=== PATIENT | female | born 1995 | race Two or more races ===

== ENCOUNTER 2016-09-06 12:41 | Emergency (ER) | payer SELFPAY ==
[2016-09-06 12:47] VITALS: BP 143/88
--- NOTE | 2016-09-06 13:26 | ED ---
Respiratory - HPI Summary HPI Summary: PT presents to the ED through amb triage. Pt with cough productive of brown sputum progressive x 4-5 days. Pt states feels fatigue with tactile temp. Pt reports sinus pressure, sore throat. No rash. No cp. No abd pain, n/v. No NESS. PT with h/o PNA approx 3 months ago and states feels similar. No tobacco history. no h/o lung dx Pt's medications reviewed at this visit. - History of Current Complaint Chief Complaint: UCRespiratory Stated Complaint: TROUBLE BREATHING Time Seen by Provider: 09/06/16 13:04 Hx Obtained From: Patient Onset/Duration: Gradual Onset Timing: Constant Initial Severity: Mild Current Severity: Moderate Character: Cough (Productive) - green Sputum Amount: Small Sputum Color: Green Aggravating Factor(s): Nothing Alleviating Factor(s): Nothing Associated Signs and Symptoms: Fever - tactile - Allergy/Home Medications Allergies/Adverse Reactions: Allergies Allergy/AdvReac Type Severity Reaction Status Date / Time No Known Allergies Allergy Verified 09/06/16 12:47 PMH/Surg Hx/FS Hx/Imm Hx Previously Healthy: Yes - Surgical History Surgery Procedure, Year, and Place: none Infectious Disease History: No Infectious Disease History: Denies: Traveled Outside the [place] in Last 30 Days - Family History Known Family History: Positive: None - Social History Occupation: Employed Full-time Lives: With Family Alcohol Use: None Substance Use Type: Reports: None Smoking Status (MU): Light Every Day Tobacco Smoker Type: Cigarettes Amount Used/How Often: 3 per day Review of Systems Positive: Fever Eyes: Negative Positive: Nasal Discharge Cardiovascular: Negative Respiratory: Negative Positive: Cough Gastrointestinal: Negative Genitourinary: Negative Musculoskeletal: Negative Skin: Negative Neurological: Negative Psychological: Normal All Other Systems Reviewed And Are Negative: Yes Physical Exam Triage Information Reviewed: Yes Vital Signs On Initial Exam: Initial Vitals Temp Pulse Resp BP Pulse Ox 97.1 F 102 20 143/88 98 09/06/16 12:44 09/06/16 12:44 09/06/16 12:44 09/06/16 12:44 09/06/16 12:44 Vital Signs Reviewed: Yes Appearance: Positive: Well-Appearing, No Pain Distress Skin: Positive: Warm, Skin Color Reflects Adequate Perfusion, Dry Head/Face: Positive: Normal Head/Face Inspection Eyes: Positive: Normal, EOMI, MIMI ENT: Positive: Pharynx normal, TMs normal - right TM mild erythema. left TM turbinates inflammed + PND No erythema, no exudate Neck: Positive: Supple, Nontender Respiratory/Lung Sounds: Positive: Rhonchi, Wheezes Cardiovascular: Positive: Normal, RRR Abdomen Description: Positive: Nontender, No Organomegaly, Soft Bowel Sounds: Positive: Present Musculoskeletal: Positive: Normal, Strength/ROM Intact Neurological: Positive: Normal, Sensory/Motor Intact, Alert, Oriented to Person Place, Time Psychiatric: Positive: Normal AVPU Assessment: Alert Diagnostics - Vital Signs Vital Signs Temp Pulse Resp BP Pulse Ox 09/06/16 12:44 97.1 F 102 20 143/88 98 - Laboratory Lab Statement: Any lab studies that have been ordered have been reviewed, and results considered in the medical decision making process. - Radiology No standard instances Radiology Interpretation Completed By: Radiologist - no acute changes Disposition - Course Assessment/Plan: pt with cough with brown sputum, fatigue, congestion and tatile fever. Pt's partner 8 months . Pt with rhonci right base. Will check CXR. abx. mdi. flonase. hydrate. motrin/apap - Diagnoses Provider Diagnoses: Bronchitis Discharge - Discharge Plan Condition: Stable Disposition: HOME Prescriptions: Albuterol HFA INHALER* [Ventolin HFA Inhaler*] 2 puff INH Q4H PRN #1 mdi PRN Reason: wheeze Azithromycin TAB* [Zithromax TAB (Z-WALTER) 250 mg #6 tabs] 250 mg PO DAILY #6 tab Fluticasone NASAL * [Flonase *] 2 spray BOTH NARES DAILY #1 spray Patient Education Materials: Acute Bronchitis (ED) Forms: *Work Release Referrals: No Primary Care Phys,NOPCP [Primary Care Provider] - Additional Instructions: - Stay well hydrated. Drink plenty of non-alcoholic, non-caffinated beverages. - Take antibiotics as prescribed until gone. Use puffer every 4hours for wheeze - use nasal spray as instructed - After you have been on antibiotics for 2 days - change your toothbrush and your pillowcase. These infections are spread by secretions - do NOT share eating or drinking utensils - clean items you share with other people such as cell phones, computer mouse, TV remote, computer tablets, etc - Alternate ibuprofen (Advil, Motrin) 600mg and Tylenol every 3 hours for pain or fever. Take with food. Do NOT take for more than 4-5 days. - Contact your doctor or return with questions or concern
--- NOTE | 2016-09-06 13:59 | RAD ---
INDICATION: Cough, fever, rhonchi at the RIGHT lung base. COMPARISON: No relevant prior exams available on the [facility] PACS for comparison. TECHNIQUE: Dual energy PA and routine lateral views of the chest were obtained. REPORT: Clear lungs and pleural spaces. Negative for pneumothorax. The heart, pulmonary vasculature, and mediastinal contours are unremarkable. Unremarkable osseous structures and soft tissue contours. IMPRESSION: No evidence for acute intrathoracic disease.
== END 2016-09-06 14:15 | disposition home or self-care (01) ==
LOC: UCEAST 12:41
DX: J40 Bronchitis, not specified as acute or chronic (principal)
CPT/HCPCS: 71020; 99212; G0463

== ENCOUNTER → 2017-01-15 21:36 | Emergency (ER) | payer SELFPAY ==
[2017-01-15 21:39] VITALS: BP 129/74
== END | disposition left against medical advice (07) ==
LOC: ED 21:36
DX: R11.10 Vomiting, unspecified (principal); Z53.21 Procedure and treatment not carried out due to patient leaving prior to being seen by health care provider

== ENCOUNTER 2017-01-16 10:06 | Emergency (ER) | payer OTHER ==
[2017-01-16 10:16] VITALS: BP 117/80
--- NOTE | 2017-01-17 18:03 | UC ---
Progress - Progress Note Progress Note: Call patient to assure sx are resolving ---if not encourage follow up
--- NOTE | 2017-01-18 10:06 | UC ---
Progress - Progress Note Progress Note: Call patient to assure sx are resolving ---if not encourage follow up 01/18/17 + UTI with E. Coli Pt given Rx Clinda Recommend change to Macrobid Rx called to pharmacy Please update pt 10:05am Lázaro
--- NOTE | 2017-01-30 17:29 | UC ---
Aarti Herrera Alfonso, scribed for Rosie Goff DO on 01/16/17 at 1103 . General HPI - HPI Summary HPI Summary: This patient is a 22 year old F presenting to [facility] with a chief complaint of productive coughing with brown/yellow phlegm since 1 week ago. The patient rates the pain 9/10 in severity. Symptoms aggravated and alleviated by nothing. Patient reports fever, nausea, vomiting (6 times yesterday and once this morning ), sharp headache, insomnia, abdominal pain, chest congestion, dysuria, and urinary frequency. Patient denies sore throat, ear ache, diarrhea, rash, myalgia , dizziness, and faintness. She recently completed a course of abx. - History of Current Complaint Chief Complaint: UCGeneralIllness Stated Complaint: COUGH,FEVER,VOMITTING Time Seen by Provider: 01/16/17 10:40 Hx Obtained From: Patient Hx Last Menstrual Period: 01/13/17 Onset/Duration: Gradual Onset, Lasting Weeks - 1, Still Present Timing: Constant Current Severity: Severe Pain Intensity: 9 - /10 Aggravating: nothing Alleviating: nothing Associated Signs & Symptoms: Positive: Other - fever, nausea, vomiting (6 times yesterday and once this morning), sharp headache, insomnia, abdominal pain, chest congestion, dysuria, and urinary frequency. Patient denies sore throat, ear ache, diarrhea, rash, myalgia, dizziness, and faintness. - Allergy/Home Medications Allergies/Adverse Reactions: Allergies Allergy/AdvReac Type Severity Reaction Status Date / Time No Known Allergies Allergy Verified 01/16/17 10:16 Home Medications: Home Medications Clindamycin Cap(NF) [Clindamycin Cap 300 mg Cap(NF)] 300 mg PO TID 01/16/17 [ History Confirmed 01/16/17] PMH/Surg Hx/FS Hx/Imm Hx Previously Healthy: Yes - Surgical History Surgical History: None Surgery Procedure, Year, and Place: none - Family History Known Family History: Positive: Hypertension, Diabetes - Social History Alcohol Use: Rare Substance Use Type: None Smoking Status (MU): Light Every Day Tobacco Smoker Type: Cigarettes Amount Used/How Often: 3 per day Cessation Counseling: Patient Advised to Stop - Immunization History Most Recent Influenza Vaccination: 02/2016 Review of Systems Constitutional: Fever Skin: Other - Negative rash ENT: Other - Negative sore throat, ear ache Respiratory: Cough, Other - Chest congestion Gastrointestinal: Abdominal Pain, Vomiting, Nausea, Other - Negative diarrhea Genitourinary: Dysuria, Frequency Musculoskeletal: Other: - Negative myalgia Neurological: Headache, Other - insomnia; negative dizziness, and faintness All Other Systems Reviewed And Are Negative: Yes Physical Exam Triage Information Reviewed: Yes Appearance: Well-Appearing, No Pain Distress, Well-Nourished Vital Signs: Initial Vital Signs Temp 97.4 F 01/16/17 10:11 Pulse 97 01/16/17 10:11 Resp 18 01/16/17 10:11 BP 117/80 01/16/17 10:11 Pulse Ox 99 01/16/17 10:11 Vital Signs Reviewed: Yes Eyes: Positive: Conjunctiva Clear. Negative: Discharge ENT: Positive: Hearing grossly normal. Negative: Tonsillar swelling, Tonsillar exudate, Trismus, Muffled voice, Hoarse voice Neck exam: Normal Neck: Positive: Supple Respiratory: Positive: Lungs clear, Normal breath sounds, No respiratory distress, No accessory muscle use Cardiovascular: Positive: RRR, No Murmur Abdomen Description: Positive: Soft, Other: - Positive psoas and automatic operator sign. Exquisite RLQ and umbilical tenderness.. Negative: Distended, Guarding Bowel Sounds: Positive: Present Musculoskeletal Exam: Normal Neurological: Positive: Alert, Muscle Tone Normal Psychological Exam: Normal Psychological: Positive: Normal Response To Family Skin Exam: Normal Skin: Positive: Other - Warm, Dry, Normal color Course/Dx - Differential Dx - Multi-Symptom Provider Diagnoses: uti, abd pain - r/o appy Discharge - Discharge Plan Condition: Stable Disposition: HOME Prescriptions: Nitrofurantoin Monohyd Macro [Macrobid] 100 mg PO BID #14 cap Patient Education Materials: Urinary Tract Infection in Women (ED), Acute Abdominal Pain (ED) Referrals: No Primary Care Phys,NOPCP [Primary Care Provider] - Additional Instructions: YOUR HISTORY AND PHYSICAL EXAM IS SUSPICIOUS FOR APPENDICITIS WELL UTI/ KIDNEY INFECTION. GIVEN THAT APPENDICITIS IS A LIFE THREATENING CONDITION, IT IS VERY IMPORTANT THAT YOU GO TO THE EMERGENCY DEPARTMENT IMMEDIATELY FOR COMPLETE EVALUATION AND TREATMENT. The documentation as recorded by the Aarti soto Alfonso accurately reflects the service I personally performed and the decisions made by , Rosie Goff DO.
== END 2017-01-16 11:42 | disposition home or self-care (01) ==
LOC: UCEAST 10:06
DX: N39.0 Urinary tract infection, site not specified (principal); B96.20 Unspecified Escherichia coli [E. coli] as the cause of diseases classified elsewhere; R10.31 Right lower quadrant pain; R10.33 Periumbilical pain; R11.2 Nausea with vomiting, unspecified; R51 Headache; R09.89 Other specified symptoms and signs involving the circulatory and respiratory systems; F17.210 Nicotine dependence, cigarettes, uncomplicated
CPT/HCPCS: 81003; 81025; 87077; 87086; 87186; 99212; G0463

== ENCOUNTER 2017-01-16 12:20 | Emergency (ER) | payer OTHER ==
[2017-01-16] MEDS ORDERED: Ondansetron INJ* 2 MG/ML VIAL IV ONE (12:58)
[2017-01-16] MEDS ORDERED: NS 0.9% 1000 ML* 1,000 ML IV ONE (12:58)
[2017-01-16] MEDS ORDERED: Ketorolac INJ* 15 MG/ML 1 ML VIAL IV ONE (12:58)
--- NOTE | 2017-01-16 13:45 | RAD ---
Indication: Cough. Single frontal view of the chest performed at 1330 hours was reviewed. Comparison is made with previous exam dated September 06, 2016. No mediastinal shift is noted. Heart is of normal size and configuration. Lung yi appear clear. IMPRESSION: NO ACTIVE CARDIOPULMONARY DISEASE IS NOTED.
[2017-01-16 14:02] LABS: Hematocrit 39 % (35-47); Hemoglobin 13.7 g/dl (12.0-16.0); Mean Corpuscular HGB Conc 35 g/dl (31-36); Mean Corpuscular Hemoglobin 31 pg (27-31); Mean Corpuscular Volume 89 fL (80-97); Mean Platelet Volume 8 um3 (7.4-10.4); Red Blood Count 4.39 10^6/ul (4.0-5.4); Red Cell Distribution Width 13 % (10.5-15); White Blood Count 10.4 10^3/ul (3.5-10.8)
[2017-01-16 14:18] LABS: ALT 18 U/L (7-52); AST 14 U/L (13-39); Albumin 4.3 g/dL (3.2-5.2); Alkaline Phosphatase 67 U/L (34-104); Amylase 33 U/L (29-103); Anion Gap 7 mmol/L (2-11); BUN/Creatinine Ratio 13.3 (8-20); Blood Urea Nitrogen 10 mg/dL (6-24); C Reactive Protein 63.98 mg/L (< 5.00); CO2 Carbon Dioxide 25 mmol/L (22-32); Calcium 9.3 mg/dL (8.6-10.3); Chloride 104 mmol/L (101-111); Creatine Kinase 108 U/L (10-223); EGFR African American 125.4 (>60); EGFR Non-African American 97.5 (>60); Globulin 3.1 g/dL (2-4); Glucose 96 mg/dL (70-100); Lipase < 10 U/L (11.0-82.0); Magnesium 2.2 mg/dL (1.9-2.7); Potassium 3.5 mmol/L (3.5-5.0); Sodium 136 mmol/L (133-145); Total Protein 7.4 g/dL (6.4-8.9)
[2017-01-16] MEDS ORDERED: Iohexol 300* (CONTRAST) 10 ML SDV IV ONE (15:49)
--- NOTE | 2017-01-16 16:07 | RAD ---
CLINICAL HISTORY: Abdominal pain COMPARISON: None TECHNIQUE: Contrast enhanced CT examination of the abdomen and pelvis from the lung bases through the initial tuberosities. The patient received 130 mL Omnipaque 300 intravenously prior to imaging.The patient received oral contrast as well prior to imaging. FINDINGS: VISUALIZED LUNG BASES: The visualized lung bases are grossly clear. There is no pleural effusion. ABDOMEN AND PELVIS: The liver, spleen, pancreas and adrenal glands are grossly normal in appearance. The gallbladder is normal. The kidneys are normal in appearance without focal mass, calcification or signs of hydronephrosis. The oral contrast has progressed as far as the rectum. The small and large bowel are not distended. The patient's normal appendix is identified in the right lower quadrant measuring up to 7 mm in diameter with contrast in the lumen (axial image 63 and coronal image 44). Air-fluid levels in the transverse colon and to a lesser extent the rectum are noted in the otherwise normal-appearing colon. There is no retroperitoneal lymphadenopathy. Mesenteric lymph nodes are top normal in diameter measuring up to 7 mm in short access but none are pathologically enlarged. An ill-defined fluid density structure measuring up to 3.2 cm in greatest axial dimension in the right adnexa is most consistent with a dominant ovarian follicle in a woman of this age. The abdominal aorta and iliac arteries are normal in course and diameter. There are no sinister bone lesions. IMPRESSION: 1. Air-fluid levels seen in the transverse colon and rectum could be seen in the setting of diarrheal illness. 2. A fluid density right adnexal structure is most consistent with a dominant ovarian follicle in a woman of this age. 3. The normal appendix is visualized.
[2017-01-16 16:14] LABS: Urine Bacteria 1+ (Absent); Urine Bilirubin Negative (Negative); Urine Glucose Negative (Negative); Urine Nitrite Negative (Negative)
[2017-01-16] MEDS ORDERED: cefTRIAXone(*) 1 GM in NS 0.9% 50 ML* 50 ML IVPB ONE (17:28)
--- NOTE | 2017-01-16 18:25 | RAD ---
INDICATION: Abdominal pain. Evaluate gallbladder. Normal CT. COMPARISON: CT same date TECHNIQUE: Longitudinal and transverse scans of the right upper quadrant were obtained. Doppler interrogation of the hepatic and portal venous system was performed. FINDINGS: Liver: There is mild hepatomegaly with hepatic steatosis. There are no masses . The liver measures 18.0 cm in cephalocaudal dimension. Vessels: There is normal hepatic and portal venous flow. Bile ducts: There is no evidence of intrahepatic or extrahepatic ductal dilatation. The common duct measures 0.4 cm. Gallbladder: The sonographic appearance of the gallbladder is normal. There is no evidence of cholelithiasis, thickening of the gallbladder wall, or pericholecystic fluid. Pancreas: The visualized pancreas appears normal Right kidney: The right kidney is normal in size and echogenicity. There are no masses or calculi. There is no evidence of hydronephrosis. The right kidney measures 11.9 x 6.1 x 5.0 cm. IVC and aorta: The aorta and superior vena cava appear normal. Fluid: There is no ascites. Other: None. IMPRESSION: NORMAL STUDY.
--- NOTE | 2017-01-16 18:39 | RAD ---
INDICATION: Right-sided abdominal and pelvic pain. COMPARISON: CT January 16, 2017 TECHNIQUE: Longitudinal and transverse transvaginal scans of the pelvis were obtained. FINDINGS: Uterus: The uterus is normal in size. There are no focal masses. The uterus measures 7.2 x 3.8 x 4.9 cm. Endometrial thickness: The endometrial thickness is measured at 0.4 cm. . Free fluid: There is a small amount of free fluid in the cul-de-sac and surrounding the right ovary. Ovaries: The ovaries are normal in size. The right ovary measures 4.1 x 2.0 x 3.4 cm. The left ovary measures 3.4 x 2.2 x 2.8 cm. There is an involuting right ovarian cyst measuring 3.1 x 0.8 x 2.4 cm. Doppler interrogation demonstrates flow to each ovary. Other: None IMPRESSION: Involuting right ovarian cyst. Small amount of free fluid.
[2017-01-16 20:11] VITALS: BP 131/71
--- NOTE | 2017-01-16 22:24 | ED ---
Francesca Herrera Nilda, scribed for Belgica Prabhakar MD on 01/16/17 at 1341 . Abdominal Pain/Female - HPI Summary HPI Summary: This patient is a 22 year old F presenting from [facility] to [facility] with a chief complaint of constant severe RLQ pain since yesterday. For the past week pt had a cough. Yesterday, pt reports N/V, fever (101), and sharp RLQ pain. This morning pt woke up with a fever and RLQ pain. Pt vomitedd 6 times yesterday, 2 times today, bilious vomiting. Pt also c/o dysuria. The patient rates the abd pain 8/10 in severity. Symptoms aggravated by palpation and alleviated by nothing. Pt states she is not on any medications but she just finished a course of 10 days of Clindamycin. NKDA. No PMHx of kidney stones. No PSHx. 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 No diarrhea. ROS: headache. 11:12 UA from Urgent Care: specific gravity 1.025 1+ protein Trace ketone 2+ blood + nitrite 1+ bilirubin - History of Current Complaint Chief Complaint: EDAbdPain Stated Complaint: POSS KIDNEY INFECTION-SENT FROM [facility] Time Seen by Provider: 01/16/17 12:58 Hx Obtained From: Patient, Medical Records - Dr. Shell Coombs Last Menstrual Period: 01/13/17 ?: No Onset/Duration: Sudden Onset, Lasting Days, Still Present Timing: Constant Severity Initially: Moderate Severity Currently: Severe Pain Intensity: 8 Pain Scale Used: 0-10 Numeric Location: Discrete At: RLQ Radiates: Yes Radiates to: Other - RUQ Character: Sharp Aggravating Factor(s): Other: - palpation Alleviating Factor(s): Nothing Associated Signs and Symptoms: Positive: Fever, Cough, Urinary Symptoms, Nausea , Vomiting, Other: - cough, RLQ pain that radiates to RUQ, fever, N/V Allergies/Adverse Reactions: Allergies Allergy/AdvReac Type Severity Reaction Status Date / Time No Known Allergies Allergy Verified 01/16/17 10:16 PMH/Surg Hx/FS Hx/Imm Hx Previously Healthy: Yes History: Denies: Hx Kidney Stones Sensory History: Denies: Hx Legally Blind EENT History: Denies: Hx Deafness - Surgical History Surgery Procedure, Year, and Place: none Infectious Disease History: No Infectious Disease History: Denies: Traveled Outside the [place] in Last 30 Days - Family History Known Family History: Positive: Hypertension, Diabetes, Other - mom- appendicitis - Social History Occupation: Employed Part-time - works at [employer] Lives: With Family Alcohol Use: Rare Substance Use Type: Reports: None Smoking Status (MU): Never Smoked Tobacco Type: Cigarettes Amount Used/How Often: 3 per day Review of Systems Positive: Fever Cardiovascular: Negative Positive: Cough Positive: Abdominal Pain - RLQ radiating to RUQ, Vomiting, Nausea Positive: dysuria Skin: Negative Positive: Headache Psychological: Normal All Other Systems Reviewed And Are Negative: Yes Physical Exam Triage Information Reviewed: Yes Vital Signs On Initial Exam: Initial Vitals Temp Pulse Resp BP Pulse Ox 97.2 F 106 18 134/80 98 01/16/17 12:26 01/16/17 12:26 01/16/17 12:26 01/16/17 12:26 01/16/17 12:26 Vital Signs Reviewed: Yes Appearance: Positive: Well-Appearing, Well-Nourished, Pain Distress Skin: Positive: Warm, Skin Color Reflects Adequate Perfusion, Other - no rash Head/Face: Positive: Normal Head/Face Inspection Eyes: Positive: EOMI, MIMI, Conjunctiva Clear ENT: Positive: Normal ENT inspection, Pharynx normal Neck: Positive: Supple, Nontender Respiratory/Lung Sounds: Positive: Clear to Auscultation, Breath Sounds Present , Other - no respiratory distress. Cardiovascular: Positive: RRR, Other - normal pulses, brisk capillary refill, S1 , S2. Negative: Murmur Abdomen Description: Positive: No Organomegaly, Soft, CVA Tenderness (R), Guarding - @ RLQ, McBurney's Point Tenderness, Other: - RLQ pain radiates to RUQ. Negative: Distended, Hernia @, Hepatomegaly, Peritoneal Signs, Pulsatile Mass, Splenomegaly Bowel Sounds: Positive: Present Musculoskeletal: Positive: Strength/ROM Intact. Negative: Alvaro Sign Left, Alvaro Sign Right, Edema Left, Edema Right Neurological: Positive: Sensory/Motor Intact, Alert, Oriented to Person Place, Time, Facial Symmetry, Speech Normal, Other - muscle tone normal Psychiatric: Positive: Normal - [place] Coma Scale Glascow Coma Scale Comments: 15 Diagnostics - Vital Signs Vital Signs Temp Pulse Resp BP Pulse Ox 01/16/17 12:26 97.2 F 106 18 134/80 98 - Laboratory Lab Results: Lab Results 01/16/17 01/16/17 01/16/17 Range/Units 13:40 13:40 13:40 WBC 10.4 (3.5-10.8) 10^3/ul RBC 4.39 (4.0-5.4) 10^6/ul Hgb 13.7 (12.0-16.0) g/dl Hct 39 (35-47) % MCV 89 (80-97) fL MCH 31 (27-31) pg MCHC 35 (31-36) g/dl RDW 13 (10.5-15) % Plt Count 223 (150-450) 10^3/ul MPV 8 (7.4-10.4) um3 Neut % (Auto) 78.2 (38-83) % Lymph % (Auto) 14.8 L (25-47) % [place] % (Auto) 6.6 (1-9) % Eos % (Auto) 0.1 (0-6) % Baso % (Auto) 0.3 (0-2) % Absolute Neuts (auto) 8.1 H (1.5-7.7) 10^3/ul Absolute Lymphs (auto) 1.5 (1.0-4.8) 10^3/ul Absolute Monos (auto) 0.7 (0-0.8) 10^3/ul Absolute Eos (auto) 0 (0-0.6) 10^3/ul Absolute Basos (auto) 0 (0-0.2) 10^3/ul Absolute Nucleated RBC 0 10^3/ul Nucleated RBC % 0 INR (Anticoag Therapy) 1.21 H (0.89-1.11) Sodium 136 (133-145) mmol/L Potassium 3.5 (3.5-5.0) mmol/L Chloride 104 (101-111) mmol/L Carbon Dioxide 25 (22-32) mmol/L Anion Gap 7 (2-11) mmol/L BUN 10 (6-24) mg/dL Creatinine 0.75 (0.51-0.95) mg/dL Est GFR ( Amer) 125.4 (>60) Est GFR (Non-Af Amer) 97.5 (>60) BUN/Creatinine Ratio 13.3 (8-20) Glucose 96 (70-100) mg/dL Lactic Acid (0.5-2.0) mmol/L Calcium 9.3 (8.6-10.3) mg/dL Magnesium 2.2 (1.9-2.7) mg/dL Total Bilirubin 0.70 (0.2-1.0) mg/dL AST 14 (13-39) U/L ALT 18 (7-52) U/L Alkaline Phosphatase 67 (34-104) U/L Total Creatine Kinase 108 (10-223) U/L C-Reactive Protein 63.98 H (< 5.00) mg/L Total Protein 7.4 (6.4-8.9) g/dL Albumin 4.3 (3.2-5.2) g/dL Globulin 3.1 (2-4) g/dL Albumin/Globulin Ratio 1.4 (1-3) Amylase 33 (29-103) U/L Lipase < 10 L (11.0-82.0) U/L Beta HCG, Quant < 0.60 mIU/mL Urine Color Urine Appearance Urine pH (5-9) Ur Specific Row[place] (1.010-1.030) Urine Protein (Negative) Urine Ketones (Negative) Urine Blood (Negative) Urine Nitrate (Negative) Urine Bilirubin (Negative) Urine Urobilinogen (Negative) Ur Leukocyte Esterase (Negative) Urine WBC (Auto) (Absent) Urine RBC (Auto) (Absent) Ur Squamous Epith Cells (Absent) Urine Bacteria (Absent) Urine Glucose (Negative) 01/16/17 01/16/17 01/16/17 Range/Units 13:40 15:15 18:53 WBC (3.5-10.8) 10^3/ul RBC (4.0-5.4) 10^6/ul Hgb (12.0-16.0) g/dl Hct (35-47) % MCV (80-97) fL MCH (27-31) pg MCHC (31-36) g/dl RDW (10.5-15) % Plt Count (150-450) 10^3/ul MPV (7.4-10.4) um3 Neut % (Auto) (38-83) % Lymph % (Auto) (25-47) % [place] % (Auto) (1-9) % Eos % (Auto) (0-6) % Baso % (Auto) (0-2) % Absolute Neuts (auto) (1.5-7.7) 10^3/ul Absolute Lymphs (auto) (1.0-4.8) 10^3/ul Absolute Monos (auto) (0-0.8) 10^3/ul Absolute Eos (auto) (0-0.6) 10^3/ul Absolute Basos (auto) (0-0.2) 10^3/ul Absolute Nucleated RBC 10^3/ul Nucleated RBC % INR (Anticoag Therapy) (0.89-1.11) Sodium (133-145) mmol/L Potassium (3.5-5.0) mmol/L Chloride (101-111) mmol/L Carbon Dioxide (22-32) mmol/L Anion Gap (2-11) mmol/L BUN (6-24) mg/dL Creatinine (0.51-0.95) mg/dL Est GFR ( Amer) (>60) Est GFR (Non-Af Amer) (>60) BUN/Creatinine Ratio (8-20) Glucose (70-100) mg/dL Lactic Acid 0.8 0.6 (0.5-2.0) mmol/L Calcium (8.6-10.3) mg/dL Magnesium (1.9-2.7) mg/dL Total Bilirubin (0.2-1.0) mg/dL AST (13-39) U/L ALT (7-52) U/L Alkaline Phosphatase (34-104) U/L Total Creatine Kinase (10-223) U/L C-Reactive Protein (< 5.00) mg/L Total Protein (6.4-8.9) g/dL Albumin (3.2-5.2) g/dL Globulin (2-4) g/dL Albumin/Globulin Ratio (1-3) Amylase (29-103) U/L Lipase (11.0-82.0) U/L Beta HCG, Quant mIU/mL Urine Color Yellow Urine Appearance Cloudy Urine pH 6.0 (5-9) Ur Specific Rowdy 1.009 L (1.010-1.030) Urine Protein Negative (Negative) Urine Ketones Negative (Negative) Urine Blood 3+ H (Negative) Urine Nitrate Negative (Negative) Urine Bilirubin Negative (Negative) Urine Urobilinogen Negative (Negative) Ur Leukocyte Esterase Trace H (Negative) Urine WBC (Auto) Trace(0-5/hpf) (Absent) Urine RBC (Auto) 1+(3-5/hpf) H (Absent) Ur Squamous Epith Cells Present H (Absent) Urine Bacteria 1+ H (Absent) Urine Glucose Negative (Negative) Result Diagrams: 01/16/17 13:40 01/16/17 13:40 Lab Statement: Any lab studies that have been ordered have been reviewed, and results considered in the medical decision making process. - Radiology CXR Radiology Interpretation Completed By: Radiologist - CXR reveals no active cardiopulmonary disease noted. ED physician has reviewed this radiology report and agrees. - CT Abd/Pel CT Interpretation Completed By: Radiologist - CT Abd/Pel, per radiologist, reveals (1) air fluid levels seen in the transverse colon and rectum could be seen in the setting of diarrheal illness. (2) A fluid density right adnexal structure is most consistent with a dominant ovarian follicle in a woman of this age. (3) the normal appendix is visualized. ED physician has reviewed this radiology report and agrees. - Additional Comments Diagnostic Additional Comments: US Abd, per radiologist, reveals normal study. US Transvaginal, per radiologist, reveals involuting right ovarian cyst. Small amount of free fluid. ED physician reviewed these reports and agrees. Re-Evaluation - Re-Evaluation First Eval Re-Evaluation Time: 17:31 Change: Improved Comment: Pain level about 5/10. Discussed results of CT and labs. Declines further pain medications at this time but agrees to gallbladder and ovary US. Second Eval Re-Evaluation Time: 20:08 Change: Improved Comment: Pt feeling better. Pt understands the diagnosis. She is agreeable to D/ C. Abdominal Pain Fem Course/Dx - Course Course Of Treatment: This patient is a 22 year old F presenting from [facility] to [facility] with a chief complaint of constant severe RLQ pain since yesterday. Medications and allergies reviewed this visit. CXR, per radiologist, reveals no active cardiopulmonary disease noted. CT Abd/Pel, per radiologist, reveals ( 1) air fluid levels seen in the transverse colon and rectum could be seen in the setting of diarrheal illness. (2) A fluid density right adnexal structure is most consistent with a dominant ovarian follicle in a woman of this age. (3) the normal appendix is visualized. US Abd, per radiologist, reveals normal study. US Transvaginal, per radiologist, reveals involuting right ovarian cyst. Small amount of free fluid. ED physician has reviewed these radiology reports and agrees. Pt is stable and will be D/C with diagnoses of UTI, Pyelonephrosis, and Abdominal pain with a prescription for Bactrim. Pt understands and is agreeable with this plan. - Diagnoses Provider Diagnoses: Pyelonephritis, Acute abdominal pain, UTI (urinary tract infection) Discharge - Discharge Plan Condition: Stable Disposition: HOME Prescriptions: Sulfamethox/Trimethoprim DS* [Bactrim DS 800/160 TAB*] 1 tab PO BID #20 tab Patient Education Materials: Urinary Tract Infection in Women (ED), Kidney Infection (ED), Acute Abdominal Pain (ED) Referrals: No Primary Care Phys,NOPCP [Primary Care Provider] - Additional Instructions: Your CT did not show appendicitis. Your ultrasound showed a small right ovarian cyst with good blood flow to both ovaries. You do not have gallstones and your gallbladder was normal. We gave you one dose of Ceftriaxone 1 gm to treat for possible kidney infection. You will need to continue the antibiotics. Have follow up with the [facility] doctors-call the number on this paper to get an appointment. Return to the ER if you have new or worsening symptoms. The documentation as recorded by the Francesca soto Nilda accurately reflects the service I personally performed and the decisions made by me, Belgica Prabhakar MD.
== END 2017-01-16 20:10 | disposition home or self-care (01) ==
LOC: ED 12:20
DX: N12 Tubulo-interstitial nephritis, not specified as acute or chronic (principal); N39.0 Urinary tract infection, site not specified; R10.31 Right lower quadrant pain
CPT/HCPCS: 36415; 71010; 74177; 76705; 76830; 80053; 81003; 81015; 82150; 82550; 83605; 83690; 83735; 84702; 85025; 85610; 86140; 87040; 96374; 96375; 99285; J0696; J1885; J2405; Q9967